=== PATIENT | male | born 1980 | race African-American/Black ===

== ENCOUNTER → 2016-07-10 | Outpatient (CLI) | payer OTHER ==
--- NOTE | 2016-07-10 23:12 | MR ---
EXAMINATION TYPE: MR maida/lstawny wo con DATE OF EXAM: 07/10/2016 9:45 PM COMPARISON: Thoracic spine x-ray April 05, 2016. Complete spine x-ray from the 05/10/2013. HISTORY: Severe mid and low back pain for 5 years, pain and numbness both legs. TECHNIQUE: Multiplanar, multisequence imaging of thoracic spine is performed without contrast FINDINGS: Exam is noted suboptimal due to significant artifact possibly related to patient's body hab itus. Motion degradation is also noted. T-Spine: A Vitamin E marker is placed posteriorly for counting purposes and is at level of superior T9 vertebr al body level. Spinal cord shows normal course, caliber, and signal as it courses the thoracic spine. Vertebral body heights and alignment are satisfactory. Disc space heights are fairly well-maintain ed. There are multilevel small posterior disc herniations effacing anterior thecal sac from T6-T7 lev el down through T10-T11 level. There is mild multilevel anterior and lateral spurring. Review of the axial images shows additional paracentral disc herniation at T2-T3 level effacing anter olateral thecal sac on image 15 more pronounced on the right side. Axial images at T3-T4 level show bilateral paracentral disc protrusions effacing anterolateral thecal sac on axial image 11. Axial images at T4-T5 level show similar paracentral disc protrusions effacing anterolateral thecal s ac. Axial images at T5-T6 level show paracentral disc protrusions effacing anterolateral thecal sac on ax ial image 5. Axial images of the lower thoracic levels are degraded by artifact. Additional disc herniations mid t o lower thoracic spine are felt present. There is felt sparing of T11-T12 and T12-L1 levels. IMPRESSION: Multilevel spurring and disc herniations effacing the anterior thecal sac at multiple lev els in the thoracic spine. L-Spine: FINDINGS: Sagittal images of the lumbar spine show vertebral body heights and alignment to appear sat isfactory. There is disc desiccation at L4-L5 and L5-S1 levels. Posterior disc herniations are seen a t these levels on sagittal images. There is mild disc space narrowing L5-S1 level. The conus medulla ris is normal in position and signal ending at mid L1 vertebral body level. The bone marrow signal i ntensity is overall heterogeneous. No significant spurring is seen. Axial images show the T12-L1 and L1-L2 levels to appear within normal limits. Axial images at L2-L3 and L3-L4 levels show mild facet degenerative changes bilaterally but spinal ca nal is preserved and bilateral neural foramina are patent. Axial images at L4-L5 level shows central disc protrusion mildly effacing the anterior thecal sac and mild facet degenerative changes bilaterally. Bilateral neural foramina are patent. Axial images at L5-S1 level show mild facet degenerative changes bilaterally and central disc protrus ion but spinal canal is preserved and bilateral neural foramina are patent. IMPRESSION: Some multilevel degenerative changes in the mid to lower lumbar spine with findings most pronounced in lower lumbar levels as detailed above.
== END | disposition home or self-care (01) ==
LOC: RADMRIMAIN 20:42
PROVIDERS: ATTEND Psychiatry & Neurology Neurology
DX: M47.816 Spondylosis without myelopathy or radiculopathy, lumbar region (principal); M51.24 Other intervertebral disc displacement, thoracic region
CPT/HCPCS: 72146; 72148

== ENCOUNTER 2016-08-22 16:19 | Emergency (ER) | payer OTHER ==
[2016-08-22 16:52] VITALS: BP 165/71; PULSE 85; RESP 18; TEMP 98.3
--- NOTE | 2016-08-22 17:17 | ED ---
Psych HPI - General Chief Complaint: Psychiatric Symptoms Stated Complaint: mental health Time Seen by Provider: 08/22/16 16:32 Source: patient, RN notes reviewed Mode of arrival: ambulatory - History of Present Illness Initial Comments: 36-year-old male presents to the emergency department with a chief complaint of stress in his life. Patient states he has a history of bipolar and depression. Patient states he did not any medication he does not seem for this. Patient states he's currently in a stressful Situation with his family and he has thought about ending it all. Patient states he hasn't had any homicidal thoughts patient denies any suicidal thoughts but sometimes he just would like all of the craziness to end.. Patient denies any acute health concerns. Patient states she was concerned due to his feelings and his safety sake doctor he should be seen. Patient denies any recent fever, chills, shortness of breath , chest pain, back pain, abdominal pain, nausea vomiting, numbness or tingling, dysuria or hematuria, constipation or diarrhea, headaches or visual changes, or any other current symptoms. - Related Data Home Medications Medication Instructions Recorded Confirmed Albuterol Inhaler [Ventolin Hfa 1 - 2 puff INHALATION RT-Q6H PRN 04/05/16 Inhaler] Acetaminophen-Codeine 300-30mg 1 tab PO DAILY PRN 08/22/16 08/22/16 [Tylenol #3] Baclofen 5 mg PO BID PRN 08/22/16 08/22/16 Diazepam [Valium] 5 mg PO DAILY PRN 08/22/16 08/22/16 metFORMIN HCL 1,000 mg PO BID 08/22/16 08/22/16 sitaGLIPtin [Januvia] 100 mg PO DAILY 08/22/16 08/22/16 Allergies Allergy/AdvReac Type Severity Reaction Status Date / Time No Known Allergies Allergy Verified 08/22/16 17:09 Review of Systems ROS Statement: Those systems with pertinent positive or pertinent negative responses have been documented in the HPI. ROS Other: All systems not noted in ROS Statement are negative. Past Medical History Past Medical History: COPD, Diabetes Mellitus, Hyperlipidemia, Hypertension Additional Past Medical History / Comment(s): Sleep apnea, restless leg History of Any Multi-Drug Resistant Organisms: None Reported Past Surgical History: Orthopedic Surgery Past Psychological History: Anxiety, Bipolar, Depression Smoking Status: Current every day smoker Past Alcohol Use History: None Reported Past Drug Use History: Marijuana General Exam Limitations: no limitations General appearance: alert, in no apparent distress Head exam: Present: atraumatic, normocephalic, normal inspection Eye exam: Present: normal appearance Neck exam: Present: normal inspection. Absent: tenderness, meningismus, lymphadenopathy Respiratory exam: Present: normal lung sounds bilaterally. Absent: respiratory distress, wheezes, rales, rhonchi, stridor Cardiovascular Exam: Present: regular rate, normal rhythm, normal heart sounds. Absent: systolic murmur, diastolic murmur, rubs, gallop, clicks Back exam: Present: normal inspection Neurological exam: Present: alert, oriented X3, CN II-XII intact. Absent: motor sensory deficit Psychiatric exam: Present: depressed, suicidal ideation. Absent: homicidal ideation Skin exam: Present: warm, dry, intact, normal color. Absent: rash Course Vital Signs 08/22/16 16:48 Temperature 98.3 F Pulse Rate 85 Respiratory 18 Rate Blood Pressure 165/71 O2 Sat by Pulse 99 Oximetry Medical Decision Making - Medical Decision Making 36-year-old male presents to the emergency department with a chief complaint of a stressful situation. Patient is not suicidal or homicidal at this time that he does admit to being overwhelmed. At this time the patient does not appear to be suffering from any acute medical emergencies. This time the patient is cleared to be evaluated by psychiatry. The patient was evaluated by psychiatry. Patient isn't suicidal ideation patient appears to be having anxiety and stress. This time he does contract to safety. He will be discharged home. We discussed return parameters and follow-up. Patient stated he understood all questions were answered. He'll be discharged. - Lab Data Lab Results 08/22/16 Range/Units 18:30 Urine Opiates Screen Not Detected (NotDetected) Ur Oxycodone Screen Not Detected (NotDetected) Urine Methadone Screen Not Detected (NotDetected) Ur Propoxyphene Screen Not Detected (NotDetected) Ur Barbiturates Screen Not Detected (NotDetected) U Tricyclic Antidepress Not Detected (NotDetected) Ur Phencyclidine Scrn Not Detected (NotDetected) Ur Amphetamines Screen Not Detected (NotDetected) U Methamphetamines Scrn Not Detected (NotDetected) U Benzodiazepines Scrn Not Detected (NotDetected) Urine Cocaine Screen Detected H (NotDetected) U Marijuana (THC) Screen Detected H (NotDetected) Disposition Clinical Impression: Acute anxiety Disposition: HOME SELF-CARE Condition: Stable Instructions: Anxiety (ED) Additional Instructions: Please use medication as discussed. Please follow up with family doctor if symptoms have not improved over the next two days. Please return to the emergency room if your symptoms increase or worsen or for any other concerns. Referrals: Yony Persaud MD [Primary Care Provider] - 1-2 days Time of Disposition: 19:31
== END 2016-08-22 19:46 | disposition home or self-care (01) ==
LOC: EC 16:19
DX: F41.9 Anxiety disorder, unspecified (principal); J44.9 Chronic obstructive pulmonary disease, unspecified; E11.9 Type 2 diabetes mellitus without complications; F17.200 Nicotine dependence, unspecified, uncomplicated; Z79.84 Long term (current) use of oral hypoglycemic drugs
CPT/HCPCS: 80306; 82075; 99284

== ENCOUNTER 2016-09-29 15:31 | Emergency (ER) | payer OTHER ==
[2016-09-29 15:48] VITALS: BP 155/83; PULSE 85; RESP 20; TEMP 98.2
[2016-09-29] MEDS ORDERED: BUPIVACAINE (PF) 0.5% 30 ML VIAL SQ STA (15:56)
--- NOTE | 2016-09-29 16:06 | ED ---
ENT HPI - General Chief complaint: Dental/Oral Stated complaint: dental Time Seen by Provider: 09/29/16 15:49 Source: patient, RN notes reviewed Mode of arrival: ambulatory Limitations: no limitations - History of Present Illness Initial comments: Patient is a 36-year-old male with chief complaint of left upper dental pain for 2 weeks. Patient reports that he has had a cracked right lower tooth that he's had for a while now. Patient reports that over the past 2 weeks ago he's noticed some irritation and swelling around the left upper molar and states that is causing some shooting pain up the side of his forehead. Patient states that the pain occurs on her he's drinking or eating anything. He states that he has been taking Motrin or Tylenol. He denies any fever or chills. He denies any difficulty opening closing his jaw. Patient reports that he has not had any recent antibiotics. He does see a regular dentist. - Related Data Home Medications Medication Instructions Recorded Confirmed Albuterol Inhaler [Ventolin Hfa 1 - 2 puff INHALATION RT-Q6H PRN 04/05/16 Inhaler] Baclofen 5 mg PO BID PRN 08/22/16 09/29/16 Diazepam [Valium] 5 mg PO DAILY PRN 08/22/16 09/29/16 metFORMIN HCL 1,000 mg PO BID 08/22/16 09/29/16 sitaGLIPtin [Januvia] 100 mg PO DAILY 08/22/16 09/29/16 Previous Rx's Medication Instructions Recorded Acetaminophen-Codeine 300-30mg 1 tab PO Q4H PRN #15 tablet 09/29/16 [Tylenol #3] Penicillin V Potassium [Pen Vee K] 500 mg PO QID #40 tab 09/29/16 Allergies Allergy/AdvReac Type Severity Reaction Status Date / Time No Known Allergies Allergy Verified 09/29/16 15:48 Review of Systems ROS Statement: Those systems with pertinent positive or pertinent negative responses have been documented in the HPI. ROS Other: All systems not noted in ROS Statement are negative. Past Medical History Past Medical History: COPD, Diabetes Mellitus, Hyperlipidemia, Hypertension Additional Past Medical History / Comment(s): Sleep apnea, restless leg History of Any Multi-Drug Resistant Organisms: None Reported Past Surgical History: Orthopedic Surgery Past Psychological History: Anxiety, Bipolar, Depression Smoking Status: Current every day smoker Past Alcohol Use History: None Reported Past Drug Use History: Marijuana General Exam - General Exam Comments Initial Comments: Well-appearing 36-year-old male. No distress Limitations: no limitations General appearance: alert, in no apparent distress Head exam: Present: atraumatic, normocephalic, normal inspection Eye exam: Present: normal appearance, PERRL, EOMI. Absent: scleral icterus, conjunctival injection, periorbital swelling ENT exam: Present: normal exam, mucous membranes moist. Absent: normal oropharynx (Patient has a chipped tooth #14. Patient also has evidence of dental caries in tooth #9 and 10.) Neck exam: Present: normal inspection. Absent: tenderness, meningismus, lymphadenopathy Respiratory exam: Present: normal lung sounds bilaterally. Absent: respiratory distress, wheezes, rales, rhonchi, stridor Cardiovascular Exam: Present: regular rate, normal rhythm, normal heart sounds. Absent: systolic murmur, diastolic murmur, rubs, gallop, clicks GI/Abdominal exam: Present: soft, normal bowel sounds. Absent: distended, tenderness, guarding, rebound, rigid Extremities exam: Present: normal inspection, full ROM, normal capillary refill. Absent: tenderness, pedal edema, joint swelling, calf tenderness Back exam: Present: normal inspection, full ROM Neurological exam: Present: alert, oriented X3, CN II-XII intact, normal gait Psychiatric exam: Present: normal affect, normal mood Skin exam: Present: warm, dry, intact, normal color. Absent: rash Course Vital Signs 09/29/16 15:46 Temperature 98.2 F Pulse Rate 85 Respiratory 20 Rate Blood Pressure 155/83 O2 Sat by Pulse 97 Oximetry Procedures - Nerve Block Consent Obtained: verbal consent Local Anesthetic Used: Marcaine 0.5% Amount of anesthesia used: 4 Side: left Intraoral Nerve Block: superior alveolar Procedure Successful: Yes Complications: none Patient Tolerated Procedure: well, no complications Medical Decision Making - Medical Decision Making Patient's 36-year-old male chief complaint of left upper molar dental pain for approximately 2 weeks. He is taking Motrin Tylenol. He reports he has noticed some swelling in redness around the gums. He states he's had no fever chills no difficulty opening or closing his jaw. Patient does have evidence of dental caries in tooth #14 as well as tooth #9 and 10. Patient reports the pain from tooth #14 will shoot up his face. Patient has no tenderness to palpation over the temporal area. Full range of motion of the jaw. Patient will be given bupivacaine superior alveolar block. Patient will be discharged with pain medication and antibiotics. Is following up with dentist as soon as possible. Patient understands treatment plan will comply. Disposition Clinical Impression: Pain, dental Disposition: HOME SELF-CARE Condition: Good Instructions: Toothache (ED), Dental Abscess (ED) Additional Instructions: [facility] [address] [place] [address] [phone] (existing clients only) For new clients: [phone] 1st consult: $50 (includes Xrays) Usually 30% less then private dentist for visits after. of [employer] Have to pay $50 for Xrays anmd rest is covered. [phone] Patient advised to complete her antibiotic prescription. If take pain medication as prescribed. Follow-up with dental clinic as soon as possible. Return to the emergency department if any alarming signs or symptoms occur. Prescriptions: Acetaminophen-Codeine 300-30mg [Tylenol #3] 1 tab PO Q4H PRN #15 tablet PRN Reason: Pain Penicillin V Potassium [Pen Vee K] 500 mg PO QID #40 tab Time of Disposition: 16:04
== END 2016-09-29 16:16 | disposition home or self-care (01) ==
LOC: EC 15:31
DX: K08.89 Other specified disorders of teeth and supporting structures (principal); E11.9 Type 2 diabetes mellitus without complications; F17.200 Nicotine dependence, unspecified, uncomplicated; Z79.84 Long term (current) use of oral hypoglycemic drugs
CPT/HCPCS: 64400; 99282

== ENCOUNTER 2017-05-15 12:06 | Emergency (ER) | payer OTHER ==
[2017-05-15 12:17] VITALS: BP 142/90; PULSE 82; RESP 18; TEMP 97.9
--- NOTE | 2017-05-15 12:47 | ED ---
General Adult HPI - General Chief complaint: Dental/Oral Stated complaint: Facial Swelling Time Seen by Provider: 05/15/17 12:36 Source: patient, RN notes reviewed Mode of arrival: ambulatory Limitations: no limitations - History of Present Illness Initial comments: Patient 36-year-old male who presents emergency room today with a chief complaint of increased swelling and tenderness over the left upper teeth. Patient does admit that symptoms started yesterday. States that he has had similar symptoms once in the past. States he has not seen a dentist. Denies any other complaints or symptoms. Patient denies any recent fever, chills, shortness of breath, chest pain, back pain, abdominal pain, nausea or vomiting, numbness or tingling, headaches or visual changes, or any other complaints. - Related Data Home Medications Medication Instructions Recorded Confirmed Baclofen 10 mg PO DAILY PRN 08/22/16 09/29/16 metFORMIN HCL 1,000 mg PO DAILY 08/22/16 09/29/16 Previous Rx's Medication Instructions Recorded Acetaminophen-Codeine 300-30mg 1 tab PO Q4H PRN #15 tablet 09/29/16 [Tylenol #3] Penicillin V Potassium [Pen Vee K] 500 mg PO QID #40 tab 09/29/16 Ibuprofen [Motrin] 800 mg PO Q6HR #20 tab 05/15/17 Penicillin V Potassium [Pen Vee K] 500 mg PO QID #40 tablet 05/15/17 Allergies Allergy/AdvReac Type Severity Reaction Status Date / Time No Known Allergies Allergy Verified 05/15/17 12:17 Review of Systems ROS Statement: Those systems with pertinent positive or pertinent negative responses have been documented in the HPI. ROS Other: All systems not noted in ROS Statement are negative. Past Medical History Past Medical History: COPD, Diabetes Mellitus, Hyperlipidemia, Hypertension Additional Past Medical History / Comment(s): Sleep apnea, restless leg History of Any Multi-Drug Resistant Organisms: None Reported Past Surgical History: Orthopedic Surgery Past Psychological History: Anxiety, Bipolar, Depression Smoking Status: Current every day smoker Past Alcohol Use History: None Reported Past Drug Use History: Marijuana General Exam - General Exam Comments Initial Comments: General: The patient is awake and alert, in no distress, and does not appear acutely ill. Eye: Pupils are equal, round and reactive to light, extra-ocular movements are intact. No nystagmus. There is normal conjunctiva bilaterally. No signs of icterus. Ears, nose, mouth and throat: There are moist mucous membranes and no oral lesions. moderate swelling to the left side of the face and no redness. No area of fluctuance or abscess head. She is tender in the gumline between teeth #12, 13, 14. Neck: The neck is supple, there is no tenderness or JVD. Cardiovascular: There is a regular rate and rhythm. No murmur, rub or gallop is appreciated. Respiratory: Lungs are clear to auscultation, respirations are non-labored, breath sounds are equal. No wheezes, stridor, rales, or rhonchi. Musculoskeletal: Normal ROM, no tenderness. Strength 5/5. Sensation intact. Pulses equal bilaterally 2+. Neurological: A&O x 3. CN II-XII intact, There are no obvious motor or sensory deficits. Coordination appears grossly intact. Speech is normal. Skin: Skin is warm and dry and no rashes or lesions are noted. Psychiatric: Cooperative, appropriate mood & affect, normal judgment. Limitations: no limitations Course Vital Signs 05/15/17 12:15 Temperature 97.9 F Pulse Rate 82 Respiratory 18 Rate Blood Pressure 142/90 O2 Sat by Pulse 98 Oximetry Medical Decision Making - Medical Decision Making patient will be started on antibiotic penicillin. Advised to begin using anti- inflammatories for pain. States is only been trying Tylenol. Advised follow- up the dentist over the next 2 days. Disposition Clinical Impression: Pain, dental Disposition: HOME SELF-CARE Condition: Good Instructions: Dental Abscess (ED) Additional Instructions: Please follow-up with dentist and use antibiotic and pain medication as discussed. [facility] [place] [address] [phone]) (existing clients only) For new clients: [phone] [employer] Pay $50 for x-rays and the rest discovered [phone] Prescriptions: Ibuprofen [Motrin] 800 mg PO Q6HR #20 tab Penicillin V Potassium [Pen Vee K] 500 mg PO QID #40 tablet Referrals: None,Stated [Primary Care Provider] - 1-2 days Time of Disposition: 12:46
== END 2017-05-15 13:00 | disposition home or self-care (01) ==
LOC: EC 12:06
DX: K08.89 Other specified disorders of teeth and supporting structures (principal); R22.0 Localized swelling, mass and lump, head; E11.9 Type 2 diabetes mellitus without complications; F17.200 Nicotine dependence, unspecified, uncomplicated; Z79.84 Long term (current) use of oral hypoglycemic drugs
CPT/HCPCS: 99283